=== PATIENT | male | born 1955 | race Caucasian/White ===

== ENCOUNTER → 2017-09-12 10:20 | Outpatient (CLI) | payer OTHER, SELFPAY ==
--- NOTE | 2017-09-12 10:31 | MRI_ITS ---
STUDY: MRI LUMBAR SPINE WITHOUT CONTRAST REASON FOR EXAM: Male, 61 years old. back pain, NUMBNESS L LEG TECHNIQUE: Standardized fat and water weighted pulse sequences were obtained in the sagittal and axial planes. COMPARISON: None FINDINGS: T12-L1: Normal endplates. Normal disc height, hydration and morphology. Normal bilateral facet joints. Normal central canal and bilateral lateral recesses. Normal bilateral intervertebral neural foramina. Normal lumbar lordosis. There is no substantial scoliosis. Normal conus medullaris that terminates at the L1 level. L1-2: Small left foramina disc herniation impinging on the left L1 nerve root. Normal bilateral facet joints. Normal central canal and bilateral lateral recesses. Normal bilateral intervertebral neural foramina. L2-3: Endplate spondylosis. Decreased disc height and small circumferential disc bulge. Degenerative changes of the bilateral facet joints. Mild narrowing of the central canal and bilateral intervertebral neural foramina. L3-4: Large left para midline and left foraminal disc herniation impinging on the left L4 and left L3 nerve roots. Endplate spondylosis. Decreased disc height and small circumferential disc bulge. Degenerative changes of the bilateral facet joints. Mild narrowing of the central canal and bilateral intervertebral neural foramina. L4-5: Endplate spondylosis. Decreased disc height and small circumferential disc bulge. Degenerative changes of the bilateral facet joints. Mild narrowing of the central canal and moderate narrowing of the bilateral intervertebral neural foramina. L5-S1: Endplate spondylosis. Decreased disc height and small circumferential disc bulge. Degenerative changes of the bilateral facet joints. Mild narrowing of the central canal and moderate narrowing of the bilateral intervertebral neural foramina. Normal visualized sacral ala. There is a right renal cyst. MRI/Spine Lumbar (Routine) IMPRESSION: Multilevel degenerative changes, as described above. Small left foramina disc herniation at L1-2 impinging on the left L1 nerve root. Large left para midline and left foraminal disc herniation at L3-4 impinging on the left L4 and left L3 nerve roots. Electronically Signed: Dustin Sharma MD at 13:49 EDT Tel , Service support ,
== END ==
PROVIDERS: Family Provider Internal Medicine; PCP Internal Medicine; Visit Provider Internal Medicine
DX: M51.26 Other intervertebral disc displacement, lumbar region (principal); M47.897 Other spondylosis, lumbosacral region
CPT/HCPCS: 72148

== ENCOUNTER 2017-09-19 08:00 | Outpatient (RCR) | payer OTHER, SELFPAY ==
--- NOTE | 2017-08-29 09:01 | HP.PTEVAL_ITS ---
Patient's Visit Information IVY CLINE is a 61 year old M referred to Physical Therapy by Tiesha Ochoa with a diagnosis of Lumbago.. Date of Evaluation: 08/29/17 Physical Therapist: Cruz Preciado DPT, OC - Visit Plan Frequency: 2x /Week Duration: 4-6 Weeks Plan: 2x/week for 4-6 for. ext bias L/S aROM and trunk /core strength. quad and HS stretch. ES and ice as needed. - Subjective Subjective: Back bothered off to left for a couple months but not out of ordinary. Rolled in middle of night a month ago and got bad pain in L side. Took ibuprofena dn back to sleep in 45 minutes. Pain was bad the next day and only able to walk 10 steps. Drove to [place] the next day and hard to stand and OK riding in car. Walked when he got home and adductor muscle was fiery painful. L medial knee numbness/paraesthesia. Saw Dr. Ochoa as he was miserable, given dose pack which kind of helped. Was on alleve 2x/day and ibuprofen every 4 hours. Did not sleep well. Saw chiropractor and then travelled a little bit. Lots of pain while travelling. PRescribed gabapentin. 3 days ago L LBP eased off and is more central now. Taking NSAIDS morning and evening now and has done a lot of sitting. Riding car was OK, not real active over this last weekend. Adductor muscle hurt yesterday evening. Numbness is constant. L adductor pain comes and goes but is much better overall. LBP is intermittent, better sitting and worse standing and needs NSAIDS. Sleeping is interrupted but better last 4-5 nights. Rolling hurts. Not bad in morning but walking hurts after 15 feet in am. 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 Was hard at work walking between rooms. Home activities: Lifting groceries is rough. Can't carry suitcases travelling. Basic ADLs are OK. overall 70% better currently but wasn't great before this incident. - Pain L LBP Pain Intensity (Out of 10): 2 Pain Intensity Range: 0, 8 L adductor pain. Pain Intensity (Out of 10): 1 Pain Intensity Range: 1, 10 - Objective Exits chair gingerly and while maintaining back ext. Needs UE. Walks slowly but safe and avoids excessive trunk movement. Posture is slightly flexed and forward shoulders, flat L/S posture. L/S ROM ext mod limited and painful central, L SB and R sB symmetrical but L hurts. flexion is min limited and painfree. reflexes 1/3 patella and achilles. Sensation is diminished in L medial thigh to gross light touch. Strength LE WNL at 4+/5. Flexibility in HS and quad mod deficits. repeated ext seems to improve motion and NE pain. Repeated flexion gives sharp pain and hesitant to move. - L/S facet compression. Transfers rolling tenderly. Shear force seems to be bothersome to lumbar spine. - Goals Goal 1:: Full L/S aROM without pain Goal Time Frame: 4-6 Weeks Goal 2:: Patient feel 100% back to normal movement and activity as prior to this incidient. Goal Time Frame: 4-6 Weeks Goal 3:: I approp HEP to minimizie future problems. Goal Time Frame: 4-6 Weeks Goal 4:: Sleep without interruptiona t night and roll without npticing back. Goal Time Frame: 2 Weeks - Rehabilitation Potential Physical Therapy Diagnosis: Likely discal pathology. Rehabilitation Potential: Fair - Anticipated Interventions Patient/Client Instruction: Educate patient on: Condition, Plan of Care For the Purpose of:: To decrease pain, To increase ROM, To improve ability of physical actions for home/community/work/leisure Therapeutic Exercise to Include: Strength training, Flexibilty training, Passive ROM, Active ROM, Dynamic Lumbar Stabilization, Sandy Exercises For the Purpose of:: To decrease pain, To increase ROM, To improve ability of physical actions for home/community/work/leisure, To improve gait and locomotor functions TENS: Yes Cryotherapy (ice pack, ice massage): Yes For the Purpose of:: To decrease pain Thank you for the opportunity to evaluate your patient. For Medicare and Medicare HMO plans, please review the plan of care and approve it. It will need to be FAXED BACK to us at [phone] for Medicare purposes. Please let me know if there are questions or concerns regarding this plan of care. Physician Signature: Date:
--- NOTE | 2017-09-19 08:58 | HP.PTREVAL ---
Tiesha Ochoa, It has been my pleasure to treat IVY CLINE over the last 6 visits for Lumbago.. Please see the progress note below for an update on the physical therapy plan of care! Subjective: Better than when I started. More active and doing more then when I started and that can set him back. Mowed the lawn yesterday and edged the lawn yesterday. Over the weekend did really well. No issues. Morning soreness has been slightly worse for a few minutes up to 1/10 centrally in LB. HEP: not doing many at all. 10/06 is return to doctor. MRI last week and has herniatation at L1. Feels like he is ready to be done and continue HEP. 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 Steps reciprocal without pain. L/S AROM full and without pain today, hesitant in flexion. OVERALL MUCH BETTER BUT STILL HESITANT. Plan Plan: F/U 3 WEEKS TO ENSURE PROGRESS AND D/C Goals Goal 1:: Full L/S aROM without pain Goal Time Frame: 4-6 Weeks Goal Progress: Goal Met Goal 2:: Patient feel 100% back to normal movement and activity as prior to this incidient. Goal Time Frame: 4-6 Weeks Goal Progress: Progressing Goal 3:: I approp HEP to minimizie future problems. Goal Time Frame: 4-6 Weeks Goal Progress: Goal Met Goal 4:: Sleep without interruptiona t night and roll without npticing back. Goal Time Frame: 2 Weeks Goal Progress: Goal Met Anticipated Interventions Patient/Client Instruction: Educate patient on: Condition, Plan of Care For the Purpose of:: To decrease pain, To increase ROM, To improve ability of physical actions for home/community/work/leisure Therapeutic Exercise to Include: Strength training, Flexibilty training, Passive ROM, Active ROM, Dynamic Lumbar Stabilization, Sandy Exercises For the Purpose of:: To decrease pain, To increase ROM, To improve ability of physical actions for home/community/work/leisure, To improve gait and locomotor functions TENS: Yes Cryotherapy (ice pack, ice massage): Yes For the Purpose of:: To decrease pain Please do not hesitate to contact me at [phone] by phone or if you have questions or concerns regarding this new plan of care! Sincerely, Cruz Preciado, DPT, OC
--- NOTE | 2017-10-10 08:41 | HP.PTDCSUM ---
HP - PT D/C Summary It has been my pleasure to treat IVY CLINE under orders from Tiesha Ochoa, for the diagnosis of Lumbago. for a total of 7 visit(s). Discharge Date: 10/10/17 Please see the following information for a summary of their discharge status. - Subjective Subjective: Cancelled last recheck on [facility]. - Pain L LBP Pain Intensity (Out of 10): 0 L adductor pain. Pain Intensity (Out of 10): 0 L GROIN Pain Intensity (Out of 10): 0 - Overall Improvement % Improvement: 95 - Objective Objective/Function: Walks slow and hesitant but wihtout pain. Steps reciprocal without pain. L/S AROM full and without pain today, hesitant in flexion. OVERALL MUCH BETTER BUT STILL HESITANT. - Goals Goal 1:: Full L/S aROM without pain Goal Progress: Goal Met Goal 2:: Patient feel 100% back to normal movement and activity as prior to this incidient. Goal Progress: Progressing Goal 3:: I approp HEP to minimizie future problems. Goal Progress: Goal Met Goal 4:: Sleep without interruptiona t night and roll without npticing back. Goal Progress: Goal Met - Plan Plan: D/C due to patient cancelling last visit. Note that he was making progress and doing well last session and this was a 3 week f/u to ensure continued progress. - D/C Information Discharge Comments: Pt cancelled today's last scheduled recheck. Was doing well 3 weeks ago at last visit and today was just to ensure continued progress with HEP. D/C! If there are questions or concerns regarding this patient's physical therapy, please feel free to call me at [phone]. Thank you for the referral of this patient. Sincerely, Cruz Preciado, DPT, OC
== END 2017-09-19 19:00 | disposition home or self-care (01) ==
LOC: PT 08:00
PROVIDERS: Family Provider Internal Medicine; PCP Internal Medicine; Visit Provider Internal Medicine
DX: M54.5 Low back pain (principal)
CPT/HCPCS: 97110; 97162; 97530

== ENCOUNTER → 2017-11-23 13:06 | Outpatient (CLI) | payer OTHER, SELFPAY ==
[2017-11-23 14:36] LABS: PSA,Total- Diagnostic 1.13 ng/mL (0.0-4.0)
[2017-11-25 08:51] LABS: Testosterone Free 5.8 pg/mL (6.6-18.1)
== END ==
PROVIDERS: Family Provider Internal Medicine; PCP Internal Medicine; Visit Provider Internal Medicine
DX: R97.20 Elevated prostate specific antigen [PSA] (principal); N52.9 Male erectile dysfunction, unspecified
CPT/HCPCS: 36415; 84153; 84402

== ENCOUNTER → 2017-12-23 16:51 | Outpatient (CLI) | payer OTHER, SELFPAY ==
--- NOTE | 2017-12-23 17:00 | RAD_ITS ---
STUDY: X-RAY - UNILATERAL RIBS ( RIGHT ) WITH CHEST REASON FOR EXAM: Male, 62 years old. Right rib pain TECHNIQUE - RIBS: 4 view(s) of the ribs. TECHNIQUE - CHEST: Single PA view of the chest. COMPARISON: None. FINDINGS - RIBS: Normal visualized ribs without a demonstrated fracture. FINDINGS - CHEST: No confluent airspace infiltrate. No pleural effusion or pneumothorax. Normal size heart. Normal mediastinum and lexie. Normal visualized pulmonary arteries. Normal visualized aortic arch and descending thoracic aorta. Normal visualized thoracic spine. Normal visualized ribs, clavicles, and shoulders. There is no demonstrated abnormality of the visualized soft tissue structures of the upper abdomen. RAD/Ribs Uni Min 3V w/PA Chest IMPRESSION: RIBS: Normal x-ray examination of the ribs. CHEST: Normal x-ray examination of the chest. Electronically Signed: Prasad Garcia MD at 1:28 EDT Tel , Service support ,
== END ==
PROVIDERS: Family Provider Internal Medicine; PCP Internal Medicine; Referring Provider Internal Medicine; Visit Provider Internal Medicine
DX: R07.81 Pleurodynia (principal)
CPT/HCPCS: 71101

== ENCOUNTER → 2018-08-09 14:33 | Outpatient (CLI) | payer SELFPAY ==
--- NOTE | 2018-08-09 14:38 | CT_ITS ---
STUDY: CARDIAC CALCIUM SCORING - CT CHEST REASON FOR EXAM: Male, 62 years old. Hyperlipidemia. Screening. RADIATION DOSAGE (If Supplied By Facility): CTDIvol = ( 12.19 ) mGy, DLP = ( 243.79 ) mGycm TECHNIQUE: Axial non-enhanced images were acquired through the heart for the sole purpose of measuring coronary artery calcium. Individualized dose optimization techniques were used for this CT. COMPARISON: None. FINDINGS: Visualized surrounding anatomy: Fatty liver Left Main Coronary Artery: 0 Left Anterior Descending Artery: 1.19 Left Circumflex Artery: 0 Right Coronary Artery: 0 Total Calcium Score: 1.19 CT/CCTA Calcium Scoring IMPRESSION: A Calcium Score of 1.19 places the patient in the approximate first percentile, based on the [employer] data calculator. Please go to: [email or web address][email or web address] , for a description of the calculator. Electronically Signed: Lowell Leavitt, at 15:50 EDT Tel , Service support ,
--- NOTE | 2018-08-09 14:38 | CT_ITS ---
STUDY: CARDIAC CALCIUM SCORING - CT CHEST REASON FOR EXAM: Male, 62 years old. Hyperlipidemia. Screening. RADIATION DOSAGE (If Supplied By Facility): CTDIvol = ( 12.19 ) mGy, DLP = ( 243.79 ) mGycm TECHNIQUE: Axial non-enhanced images were acquired through the heart for the sole purpose of measuring coronary artery calcium. Individualized dose optimization techniques were used for this CT. COMPARISON: None. FINDINGS: Visualized surrounding anatomy: Fatty liver Left Main Coronary Artery: 0 Left Anterior Descending Artery: 1.19 Left Circumflex Artery: 0 Right Coronary Artery: 0 Total Calcium Score: 1.19 CT/Limited Chest CT w/CCTA IMPRESSION: A Calcium Score of 1.19 places the patient in the approximate first percentile, based on the [employer] data calculator. Please go to: [email or web address].[email or web address] , for a description of the calculator. Electronically Signed: Lowell Leavitt, at 15:50 EDT Tel , Service support ,
[2018-08-09 14:48] VITALS: BP 161/77; PULSE 70; RESP 16; O2SAT 96; BMI 38.0
--- NOTE | 2018-08-11 12:14 | CA.SCORE ---
Calcium Scoring Date of Study:: 08/09/18 Coronary Calcium Scoring: High-resolution Computed Tomographic imaging of the chest was performed on [ ], with particular attention paid to the coronary arteries. Images from the examination were analyzed for the presence and extent of coronary artery calcification , using coronary calcium quantification software. The patient tolerated the procedure well and there were no complications. The results of the coronary calcification analysis are provided below. - Findings Left Main (LM): 0 Left Anterior Descending (LAD): 1.19 Left Circumflex (LCX): 0 Right Coronary Artery (RCA): 0 Total Agatston Score: 1.19 Percentile Rankin - Conclusion Calcium Scoring Interpretation: Calcium Score Interpretation 0 No identifiable atherosclerotic plaque. Very low cardiovascular disease risk. <5% chance of presence coronary artery disease A Negative Examination 1-10 Minimal Plaque burden. Significant coronary artery disease very unlikely. 11-100 Mild plaque burden. Likely mild or minimal coronary atherosclerosis. 101-400 Moderate plaque burden Moderate non-obstructive coronary artery disease highly likely. Over 400 Extensive plaque burden. High likelihood of at least one significant coronary stenosis (>50% diameter) Conclusions: Patient has a coronary calcium score of 1.19 which is consistent with minimal plaque burden. Significant coronary artery disease very unlikely.
== END ==
PROVIDERS: Family Provider Internal Medicine; PCP Internal Medicine; Referring Provider Internal Medicine; Visit Provider Internal Medicine
DX: E78.5 Hyperlipidemia, unspecified (principal)
CPT/HCPCS: 75571; 76380

== ENCOUNTER 2019-11-12 04:29 | Emergency (ER) | payer OTHER, SELFPAY ==
[2018-08-09 14:48] VITALS: BMI 38.0
[2019-11-12 04:30] VITALS: BP 164/103; PULSE 77; RESP 15; TEMP 36.4; O2SAT 97; BMI 30.2
--- NOTE | 2019-11-12 04:41 | RAD_ITS ---
STUDY: X-RAY - CERVICAL SPINE REASON FOR EXAM: Male, 63 years old. Cervical radiculopathy. Neck pain for 3 days. No known injury. TECHNIQUE: History view(s) of the cervical spine were obtained. COMPARISON: None FINDINGS: Normal anterior atlantoaxial articulation. Normal odontoid process. Normal cervical lordosis. Normal vertebral bodies. Disc space narrowing C5 -- C6 through C7 -- T1. Marginal osteophytes at multiple levels in the mid and lower cervical spine. Uncovertebral joint hypertrophy at multiple levels. The soft tissue structures are unremarkable. RAD/Cerv Spine 2 or 3 Views IMPRESSION: Multilevel degenerative changes of the mid and lower cervical spine, no fracture identified. Electronically Signed: Lyndon Jeffrey MD at 5:37 EDT , Service support ,
--- NOTE | 2019-11-12 04:44 | ED.VIS.GEN ---
History of Present Illness Chief Complaint: Other, Pain/Inj Narrative: Patient presenting for evaluation secondary to neck pain. Patient reports that over the course of about the last 4 days he has been dealing with neck pain. He reports that it is from the base of his neck and has started to have some radiation down to his left shoulder and left upper arm. Pain seems to be worse with movement. Is been intermittently relieved via NSAIDs such as ibuprofen as well as a heating pad. Patient denies that it is been associated with any sort of injury. No falls. No lifting twisting pushing or pulling or increased activity. States that he has had maybe mild symptoms in the past, but nothing severe. Patient denies any recent fevers chills night sweats unintended weight loss. Patient had a left elbow injection with Kenalog about 6 weeks ago denies any history of IV drug abuse or recent surgeries. Review of systems otherwise negative. Past Medical History - Allergies and Home Meds Allergies/Adverse Reactions: Allergies Proton Pump Inhibitors Adverse Reaction (Verified 11/12/19 04:33) Other MUSCLE PAIN PPI Adverse Reaction (Uncoded 03/03/16 14:09) MUSCLE PAIN Primary Care Physician: Ai Amaya MD [STAFF PHYSICIAN] - As soon as possible Jessica Herman MD [STAFF PHYSICIAN] - (If not receiving pain relief from Pain Management) Prior records reviewed: Yes Past Medical History: - - Diabetes, hypertension Lives: Spouse/ Significant Other Smoking Status: Never smoker Alcohol: None Drugs: None Review of Systems All systems negative except as indicated General: Denies: Chills, Fever, Sweats Eyes: Denies: Visual changes - bilaterally, Diplopia ENT: Denies: Rhinorrhea, Sore throat Cardiovascular: Denies: Chest pain, Palpitations Respiratory: Denies: Dyspnea, Cough, Dyspnea on exertion Gastrointestinal: Denies: Abdominal pain, Nausea, Vomiting, Diarrhea, Melena, Hematochezia Genitourinary: Denies: Dysuria, Hematuria, Frequency Musculoskeletal: Reports: Neck pain Skin: Denies: Rash, Wounds Neurological: Denies: Headache, Weakness, Numbness Physical Exam Vital Signs/Narrative: Vital Signs Temp Pulse Resp BP Pulse Ox 11/12/19 04:30 97.6 F L 77 15 164/103 H 97 Inital Vital Signs reviewed: Yes General: Well nourished, Well developed Head: Normocephalic, Atraumatic Eyes: Perrl, EOMI ENT: Moist mucous membranes, No rhinorrhea Neck: Supple, - - Patient complains of no tenderness of the neck. There is normal range of motion with minimal pain in the lower neck. No step-offs noted. No reproduction of pain with axial loading of the neck. Cardiovascular: Regular rate, Regular rhythm, No murmurs, - - 2+ radial pulses bilaterally symmetric Respiratory: No distress, CTA bilaterally, Chest nontender Back: Nontender Extremities: Nontender, No edema Skin: Normal color, No rash Neurological: Alert, Oriented x3, - - 5 out of 5 strength at the shoulder elbow wrist and hand with normal sensation over all dermatomes. 2+ brachioradialis biceps and triceps reflexes bilaterally symmetric. Normal distal pulses. Psychological: Normal affect Diagnostic/Tx/Re-eval Clinical Impression(s) from Imaging Studies Cervical Spine X-Ray 11/12/19 04:41 IMPRESSION: Multilevel degenerative changes of the mid and lower cervical spine, no fracture identified. Electronically Signed: Lyndon Jeffrey MD at 5:37 EDT , Service support , - Medical Decision Making Patient presented secondary to neck pain. Patient requested not to have too strong of analgesia due to the fact that he has to work this week, he was given a dose of Flexeril with minimal if no relief. X-ray of the neck was performed and shows some degenerative changes of the patient's lower C-spine. Patient has no red flag signs or symptoms that would indicate a need for emergent neuroimaging. He does have symptoms of cervical radiculopathy. He has a history of diabetes, I had a palmer discussion with the patient about the risks of gastritis and hyperglycemia with steroid use, I did recommend that if we were to try steroids he needs to more frequently check his sugars. He did consent to this. Patient was given a dose of prednisone in the emergency department. Will be sent home with a burst of prednisone as well as a short course of Percocet for breakthrough pain. Patient will be given a referral to pain management as well as spine surgery. Patient was recommended other conservative management measures and he was discharged. ED Disposition - Plan for ED Patient: Disposition: Home or Assisted Living Diagnosis: Cervical radiculopathy Instructions: ED CERVICAL RADICULOPATHY Prescriptions: Prednisone [Deltasone] 40 mg PO DAILY #10 tab Prescription Printed Oxycodone HCl/Acetaminophen [Percocet 5/325] 1 tab PO Q6H PRN PRN 3 Days #12 tab PRN Reason: Pain Prescription Printed Referrals: Ai Amaya MD [STAFF PHYSICIAN] - As soon as possible Jessica Herman MD [STAFF PHYSICIAN] - (If not receiving pain relief from Pain Management)
[2019-11-12] MEDS: cycloBENZAPRine HCl 10 MG Tablet PO (04:58)
[2019-11-12] MEDS: predniSONE 20 MG Tablet 60 MG PO (05:58)
[2019-11-12 06:02] VITALS: BP 158/92; PULSE 86; RESP 17; O2SAT 96
== END 2019-11-12 06:03 | disposition home or self-care (01) ==
LOC: ED 04:59
PROVIDERS: Emergency Provider Emergency Medicine; PCP Internal Medicine
DX: M54.12 Radiculopathy, cervical region (principal); E11.9 Type 2 diabetes mellitus without complications; I10 Essential (primary) hypertension; Z79.84 Long term (current) use of oral hypoglycemic drugs
CPT/HCPCS: 72040; 99283

== ENCOUNTER 2019-12-19 10:30 | Outpatient (RCR) | payer OTHER, SELFPAY ==
--- NOTE | 2019-11-19 13:09 | HP.PTEVAL_ITS ---
Patient's Visit Information IVY CLINE is a 64 year old M referred to Physical Therapy by Dr. Tiesha Ochoa MD with a diagnosis of Severe Neck Pain. Date of Evaluation: 11/19/19 Physical Therapist: Ivanna Daniel DPT - Visit Plan Frequency: 2-3x /Week Duration: 4 Weeks Plan: Postural correction- Centralization- cervical spine strength- Ultrasound, E-stim and Traction (manual prior to mechanical). - Subjective Patient reports that he went on vacation a week and a half ago slept fine but about the 4th morning he woke up and had pain at the base of the spine- Ibuprofen and it got better- then it started to get worse at night. He was t aking more NSAIDS- he was awake at night 09/30 and then asked to go to the ED- x- rays showed slight OA- gave him a muscle relaxer, Percoset for break through and Prednisone. Then saw his PCP who prescribed Gabapentin. The muscle relaxers don't seem to do anything for him. At night he was up every hour- once he started taking Valium and Percoset and then he was able to sleep for a few more hours. She extended the Predisone 2x a day so at night things have been a little better has not had to take the Percoset in the middle of the night. Sleeping 3 hours at at time at this point. During the day he is not bad but its at the end of the day it gets progressively worse in the evening and through the night. Pain is C6-7 and radiates to the left- mainly in the trap but does radiate to the AC joint. No N/T in the fingers or UE. Sharp constant pain the back of the neck- referred pain nagging achy pains. Worst: 09/30 Agg: night time, Best: 03/02. Eases: medication. Does not feel like he is losing strength in either upper extremity. Has had a GARCIA 1-2x but not consistent- no blurred vision or dizziness. Right hand dominate. Sleep: Side sleeper- twisted like a pretzel- uses 1 pillow. 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 PMhx/Meds: addition of Gabapentin from PCP - Objective Posture: FH, RS- can correct but does not maintain. Gait: no deviation noted- good arm swing and trunk rotation. Palpation: tender along C6-C7 along the left upper trap, insertion of levator scap and down the medial boder of the scapula. ROM: UE: Shoulder, Elbow, Wrist, Hand: WNL Cervical: Extn: decreased by 50% all other motions no restrictions. Sensation: WNL to gross touch bilateral. Strength: Shoulder: 5/5 ELbow: 5/5, Wrist: 5/5, Yarn Dry Room Worker: equal, Scap: fair minus. Special Test: Spurlings: positive, Gentle distraction: decreased symptoms mildly. Dural Signs: positive on the left - Goals Goal 1:: Patient will be I with HEP and progression Goal Time Frame: 4-6 Weeks Goal 2:: Patient will maintain proper posture t/o tx session to demo increased scap s/s Goal Time Frame: 4-6 Weeks Goal 3:: Patient will report no radiating s/s in the left UE Goal Time Frame: 4-6 Weeks Goal 4:: Patient will reports sleeping throughout the night for 1 week Goal Time Frame: 4-6 Weeks - Rehabilitation Potential Physical Therapy Diagnosis: Patient presents with hypomobility- he has decreased ROM, muscular endurance and radiating pain leading to increased pain with ADLs and inability to sleep. Rehabilitation Potential: Fair - Anticipated Interventions Thank you for the opportunity to evaluate your patient. For Medicare and Medicare HMO plans, please review the plan of care and approve it. It will need to be FAXED BACK to us at [phone] for Medicare purposes. For Medicare only, by signing this I certify the plan of care. Please let me know if there are questions or concerns regarding this plan of care. Physician Signature: Date:
--- NOTE | 2019-12-19 10:57 | HP.PTREVAL ---
Dr. Tiesha Ochoa MD, It has been my pleasure to treat IVY CLINE over the last 9 visits for Severe Neck Pain. Please see the progress note below for an update on the physical therapy plan of care! Subjective: Patient reports he is sleeping fine- took 2 Gabapentin before bed time. Some days he is taking meds through the day but more often than not he is taking more NSAID's during the day and getting through the day. He is a 1-2/10 at this point in the day without medication. Objective/Function: Posture: FH, RS- can correct but does not maintain. Gait: no deviation noted- good arm swing and trunk rotation. Palpation: tender along the left upper trap, insertion of levator scap and down the medial boder of the scapula. ROM: UE: Shoulder, Elbow, Wrist, Hand: WNL Cervical: WNL in all planes without pain. Sensation: WNL to gross touch bilateral. Strength: Shoulder: 5/5 ELbow: 5/5, Wrist: 5/5, Staff Development Manager: equal, Scap: fair minus. Special Plan Plan: Hold- will follow up in 1 month- start massage Goals Goal 1:: Patient will be I with HEP and progression Goal Time Frame: 4-6 Weeks Goal Progress: Goal Met Goal 2:: Patient will maintain proper posture t/o tx session to demo increased scap s/s Goal Time Frame: 4-6 Weeks Goal Progress: Progressing Goal 3:: Patient will report no radiating s/s in the left UE Goal Time Frame: 4-6 Weeks Goal Progress: Goal Met Goal 4:: Patient will reports sleeping throughout the night for 1 week Goal Time Frame: 4-6 Weeks Anticipated Interventions Please do not hesitate to contact me at [phone] by phone or if you have questions or concerns regarding this new plan of care! Sincerely, Ivanna Daniel DPT
--- NOTE | 2020-01-31 11:06 | HP.PT.NRP ---
IVY CLINE was seen in my office for initial evaluation on 11/19/19. The following Plan of Care was established for this patient: Initial Frequency: 2-3x /Week Initial Duration: 4 Weeks This patient was last seen in our office . Pertinent comments regarding their Physical therapy will appear below: Patient has not returned to PT in over 4 weeks- appropriate for discharge and return to MD for further evaluation. At this point I will be discontinuing this patient from physical therapy. I would be happy to see this patient again in the future if found appropriate by the physician. Thank you! Ivanna Daniel, LAZT
== END 2019-12-19 19:00 | disposition home or self-care (01) ==
LOC: PT 10:30
PROVIDERS: PCP Internal Medicine; Referring Provider Internal Medicine; Visit Provider Internal Medicine
DX: M54.2 Cervicalgia (principal)
CPT/HCPCS: 97035; 97110; 97140; 97162; 97164; 97530

== ENCOUNTER → 2020-12-22 11:21 | Outpatient (CLI) | payer OTHER, SELFPAY ==
--- NOTE | 2020-12-22 11:30 | RAD_ITS ---
STUDY: X-RAY CHEST REASON FOR EXAM: Male, 65 years old. SHORTNESS OF BREATH TECHNIQUE: PA and lateral views of the chest. COMPARISON: Comparison is made with prior study dated 12/03/2016. FINDINGS: There is elevation of the left hemidiaphragm with increased markings at the left base suggestive of bibasilar linear atelectasis and/or scarring. There is blunting of the left costophrenic angle. Normal size heart. Normal mediastinum and lexie. Normal visualized pulmonary arteries. There is atherosclerotic tortuosity of the aortic arch and descending thoracic aorta. Normal visualized thoracic spine. Normal visualized ribs, clavicles, and shoulders. There is no demonstrated abnormality of the visualized soft tissue structures of the upper abdomen. RAD/Chest PA and Lateral IMPRESSION: Elevation of the left hemidiaphragm with mild increased markings at the left lung base and blunting of the left costophrenic angle. Electronically Signed: Rogelio Albert MD at 15:41 EDT , Service support ,
--- NOTE | 2020-12-22 11:30 | RAD_ITS ---
STUDY: X-RAY - SOFT TISSUE NECK REASON FOR EXAM: Male, 65 years old. NECK/TRUNK SENSORY PROBLEM TECHNIQUE: 2 view(s) of the neck were obtained. COMPARISON: None. FINDINGS: Normal visualized nasopharynx, oropharynx, hypopharynx. Normal epiglottis. Normal visualized subglottic tracheal air column. Normal prevertebral soft tissue structures. There are degenerative changes of the cervical spine with cervical spondylosis. The soft tissue structures are unremarkable. RAD/Neck for Soft Tissue IMPRESSION: Multilevel spondylosis and disc space narrowing of the cervical spine. Electronically Signed: Rogelio Albert MD at 15:36 EDT , Service support ,
== END ==
PROVIDERS: PCP Internal Medicine; Referring Provider Internal Medicine; Visit Provider Internal Medicine
DX: R06.02 Shortness of breath (principal); R68.89 Other general symptoms and signs
CPT/HCPCS: 70360; 71046

== ENCOUNTER → 2021-01-07 06:22 | Outpatient (CLI) | payer OTHER, SELFPAY ==
--- NOTE | 2021-01-07 06:31 | CT_ITS ---
STUDY: CT CHEST WITH CONTRAST REASON FOR EXAM: Male, 65 years old. SOB. Patient has a history of sarcoidosis. RADIATION DOSAGE (If Supplied By Facility): CTDIvol = ( 17.10 ) mGy, DLP = ( 772.64 ) mGycm TECHNIQUE: Transaxial imaging was performed following intravenous administration of IV 100mL Isovue-370. Multiplanar coronal and sagittal images were reformatted. Individualized dose optimization techniques were used for this CT. COMPARISON: None. FINDINGS: Small benign-appearing bilateral axillary lymph nodes. Focal infiltrate in the posterior segment of the left lower lobe. There is no demonstrated pleural abnormality. Normal heart and pericardium. Normal mediastinum. Normal hilar regions. Normal enhanced pulmonary arteries. Normal aorta arch and descending thoracic aorta. There are multi-level degenerative changes of the thoracic spine. There is no demonstrated abnormality of the visualized upper abdomen. CT/Chest WITH Contrast IMPRESSION: Focal left lower lobe infiltrate. Electronically Signed: Rogelio Albert MD at 13:50 EST , Service support ,
[2021-01-07 09:20] LABS: CREATININE FINGERSTICK 0.7 mg/dL (0.70-1.30); EGFR FINGERSTICK > 60.0000 mL/min (>60)
--- NOTE | 2021-01-07 13:23 | STRESSREP ---
Stress Test Report Exercise myocardial perfusion stress test. 65-year-old man with a history of shortness of breath. Medications amlodipine benazepril Crestor. Stress protocol: Resting EKG demonstrates normal sinus rhythm with a rate of 65 bpm normal intervals are noted resting blood pressure is 118/78 mmHg. The patient exercised according to regular Leobardo protocol for total duration of 7 minutes completing 1 minute into stage III of the Leobardo protocol the maximum heart rate attained 139 bpm which was 89% of max impact at heart rate the maximum workload was 10.1 metabolic equivalents. At rest there were no ST or T wave changes noted to suggest ischemia and at peak exercise upsloping ST changes were noted with did not suggest ischemia. No chest pain was noted shortness of breath was noted which got rather significant at peak exercise. Dissipated on rest. Myocardial perfusion protocol. 14.7 mCi of technetium 99m sestamibi was injected at rest. The patient exercised according to regular Leobardo protocol for 7 minutes and at peak exercise 44.9 mCi of technetium 99m sestamibi was injected stress images were obtained and stress and rest images were reconstructed and compared in the short axis vertical long and horizontal long axis. Gated images were also obtained per Perfusion SPECT analysis: Review of the stress images demonstrate normal uptake of tracer noted in all areas of the myocardium. The resting images similarly demonstrate normal uptake of tracer noted in all areas of the myocardium. No areas of reversibility are noted to suggest ischemia and no previous infarct is noted. Gated SPECT analysis: The gated ejection fraction is 65%. Conclusion: Normal exercise myocardial perfusion stress test with no evidence of ischemia at a high workload. Preserved ejection fraction.
--- NOTE | 2021-01-08 13:15 | PFT ---
INTRODUCTION: The patient is a 65-year-old male that presents for pulmonary function studies secondary to a diagnosis of shortness of breath. Respiratory therapy reported good patient effort. Bronchodilators were used during testing. INTERPRETATION: Forced expiration spirometry demonstrates no evidence of a large airways obstructive ventilatory defect. There was no significant response to aerosolized bronchodilators. Spirograms are of good quality and plateau gradually indicating slow emptying of the lungs. Body plethysmography was performed and revealed an elevated RV, indicative of air trapping. Diffusing capacity by single breath CO is within normal limits. IMPRESSION: Grossly normal pulmonary function studies.
== END ==
PROVIDERS: PCP Internal Medicine; Referring Provider Internal Medicine; Visit Provider Internal Medicine
DX: R06.02 Shortness of breath (principal)
CPT/HCPCS: 71260; 78452; 93017; 94060; 94726; 94729; A9500; Q9967; A4216

== ENCOUNTER → 2021-01-14 09:13 | Outpatient (CLI) | payer OTHER, SELFPAY ==
--- NOTE | 2021-01-14 09:20 | RAD_ITS ---
PROCEDURE: Sniff test DATE OF EXAMINATION: 01/14/2021 INDICATION: Male, 65 years old with increasing dyspnea on exertion. PHYSICIAN: Dr. Brice Rehman FLUOROSCOPY TIME (if supplied): (5) seconds RADIATION DOSAGE (If Supplied By Facility): CTDIvol = ( 8.26 ) mGy. CONSENT: The risks, benefits and alternatives to the procedure were explained to the patient, and the patient agreed to the procedure and signed the consent. SEDATION: None PROCEDURE/TECHNIQUE: The lung apices were not included in the [id number]. Please note that the low-dose technique is suboptimal for complete evaluation of the lungs. Multiple AP fluoroscopic sequences were obtained of the bilateral diaphragms with the patient in upright position. Patient was instructed breathed normally. Normal right-sided diaphragmatic excursion. Persistent elevation of the left hemidiaphragm. Patient was then asked to perform sniff test. Normal right-sided diaphragmatic excursion. Persistent elevation of the left hemidiaphragm was again seen with paradoxical motion. RAD/Chest Sniff Test Fluoro Only IMPRESSION: Abnormal persistent elevation and paradoxical motion of the left hemidiaphragm. Electronically Signed: Brice Rehman MD at 13:04 EST Tel , Service support ,
== END ==
PROVIDERS: PCP Internal Medicine; Referring Provider Internal Medicine; Visit Provider Internal Medicine
DX: R93.89 Abnormal findings on diagnostic imaging of other specified body structures (principal); R68.89 Other general symptoms and signs
CPT/HCPCS: 76000

== ENCOUNTER 2021-12-25 13:30 | Outpatient (RCR) | payer MEDICARE, OTHER, SELFPAY ==
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
--- NOTE | 2021-12-25 15:19 | HP.PTDCSUM_ITS ---
It has been my pleasure to treat IVY CLINE referred by Dr. Adriana Dowling DO, with the diagnosis of LOW BACK PAIN AND RIGHT FOOT PAIN (PLANTAR FASCITIS) TIGHT ACHILLES. for a total of 8 visit(s). Discharge Date: Please see the following information for a summary of their discharge status. Subjective: PATIENT REPORTS HE IS MUCH BETTER. HE REPORTS HE FEELS READY TO BE DISCHARGED TO [facility] AT THIS TIME. HE REPORTS HE HAS [facility] AND PLANS TO JOIN TO CONTINUE [employer] [facility]. HE REPORTS HIS FOOT IS 90 TO 95% BETTER AND HIS BACK IS 80 TO 85% BETTER. PATIENT DENIES LB AND FOOT PAIN RIGHT NOW. IS HAVING SOME NECK/SHLD PAIN - MASSAGE HELPS. 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 Lumbar Spine Pain Intensity (Out of 10): Unrated Cerv. Spine Pain Intensity (Out of 10): Unrated Objective/Function: PATIENT WAS SEEN TODAY FOR RE-ASSESSMENT OF PROGRESS TOWARD THE SET PT GOALS AND THE NEED FOR FURTHER PHYSICAL THERAPY VS READINESS FOR DISCHARGE. ALL GOALS MET. UPON EXAM TODAY: Dural Signs: NEGATIVE TAMARA LE'S. Lumbar mvmt loss: flex - NIL. ext - MIN. R SG - MIN. L SG - MIN. PATIENT DENIES INCREASED LOW BACK AND FOOT PAIN WITH LUMBAR ROM TESTING ALL PLANES. NO C/O PAIN TODAY WITH STANDING X 5 MIN. Goal 1:: DECREASE C/O LOW BACK AND RIGHT FOOT PAIN Goal Progress: Goal Met Goal 2:: IMPROVE LIFTING, WALKING, SITTING, STANDING AND WORK/HOMEMAKING FUNCTION Goal Progress: Goal Met Goal 3:: INSTRUCT IN PROPHYLAXIS Goal Progress: Goal Met Plan: D/C TO [facility] - PATIENT IS PLANNING TO JOIN [employer] WITH [employer]. If there are questions or concerns regarding this patient's physical therapy, please feel free to call me at [phone]. Thank you for the referral of this patient. Sincerely, Denise Garrido, PT, Cert MDT Balance/Gait/Functional tests - Balance/Special Test Scores Oswestry Low Back Score: 14 Lower Extremity Functional Score: 34
== END 2021-12-25 16:23 | disposition home or self-care (01) ==
LOC: PT 13:30
PROVIDERS: PCP Internal Medicine; Referring Provider Internal Medicine; Visit Provider Internal Medicine
DX: M54.50 Low back pain, unspecified (principal); M72.2 Plantar fascial fibromatosis
CPT/HCPCS: 97112; 97113; 97162

== ENCOUNTER → 2022-01-13 | Outpatient (CLI) | payer MEDICARE, OTHER, SELFPAY ==
--- NOTE | 2022-01-13 12:51 | STE_ITS ---
Reason For Study: Dyspnea Stress Results Protocol: Dobutamine Stress Echo Maximum Predicted HR: 155 bpm Target HR: 132 bpm % Maximum Predicted HR: 81 % DurationHeart Rate Stage (mm:ss) (bpm) BP Comment Baseline 65 123/85No Chest Pain DSE 10 MCG 4:22 68 116/77No Chest Pain DSE 20 MCG 3:00 71 129/75No Chest Pain DSE 30 MCG 3:01 75 140/72No Chest Pain DSE 40 MCG 5:12 125 162/92No Chest Pain; Atropine 0.5 MG 1042; Atropine 0.5 MG 1210 Recovery 97 130/88No Chest Pain Stress Duration: 15:35 mm:ss Maximum Stress HR: 125 bpm METS: 1 Baseline Echocardiogram Findings Stress Echo Wall motion Data Resting WM Intermediate WM Stress WM ECHO/Stress Test Echo w/o Contrast Interpretation Summary . Dobutamine stress echocardiogram. 66-year-old man with a history of shortness of breath and chest pain. Resting EKG. Resting EKG demonstrates normal sinus rhythm with a rate of 81 bpm normal intervals are noted resting blood pressure is 123/85 mmHg. Dobutamine was infused starting at 310 mcg/kg/min increasing and 3-minute aliquots to a peak of 40 mcg/kg/min. The patient requir ed 1 mg of intravenous atropine given and 0.5 mg aliquots for attainment of target heart r ate. The maximum heart rate attained was 1 and 25 bpm which was 80% of max impacted heart rate t he maximum workload was 1 metabolic equivalent. At rest there were no ST or T wave changes noted so ggest ischemia and at peak infusion nonspecific ST changes were noted. The peak blood pressure was 17 5/97 mmHg. Stress echocardiogram. The resting echocardiogram demonstrated an ejection fraction of 55% with no wal l motion abnormalities noted. A prominent thickened papillary muscle was noted. During d obutamine infusion there was thickening of all bender and reduction of low ventricular cavity size with peaking of ejection fraction at 75%. No wall motion abnormalities were noted. Conclusion: Normal dobutamine stress echocardiogram with no EKG or echocardiographic criter ia for ischemia. Ordering Physician: Teddy Hopper V Referring Physician: Teddy Hopper V Performed By: Janneth Roach, CHASE, RVT
== END | disposition home or self-care (01) ==
PROVIDERS: PCP Internal Medicine; Referring Provider Internal Medicine Pulmonary Disease; Visit Provider Internal Medicine Pulmonary Disease
DX: R06.00 Dyspnea, unspecified (principal)
CPT/HCPCS: 93017; 93350; J7040; Q9957; A4216

== ENCOUNTER 2022-04-08 12:30 | Outpatient (RCR) | payer MEDICARE, OTHER, SELFPAY ==
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
--- NOTE | 2022-04-08 14:19 | HP.PTDCSUM ---
It has been my pleasure to treat IVY CLINE referred by Dr. Adriana Dowling DO, with the diagnosis of low back pain and muscle spasms for a total of 7 visit(s). Discharge Date: Please see the following information for a summary of their discharge status. Subjective: Overall Ivy reports not much improvement with PT. Pt. denies changes in B/B control, but is having more issues where his legs give out on him. He reports having an incident at work where he collapsed in the a chair due to his legs giving out on him. He says there is instant pain, but after there is not much. Lumbar spine Pain Intensity (Out of 10): 0 % Improvement: 20 Objective/Function: Pt. has not made much gains with PT, in fact he is having more occurrences of his legs giving away. He is very limited in his mobility in transitions, ie sit to stand like motions. He is very guarded, not secondary to increased pain, but due to his legs wanting to given out on him. It seems like if he goes to far forward (flexed) his legs give out on him, so he has to rise in a very guarded up right posture. I assume MRI is off the table with his diaphram stimulator, but I think he needs to have some sort of image to determine more sinister diagnosis. LE strength: 4+/5 throughout without increase in symptoms. Lumbar spine: limited in all directions due to fear of legs giving out on him. He does not have a marked myotomal weakness in sitting, but has increased issues with transitional movements. GAIT: very guarded with limited arm swing. Overall very guarded posture and mobility. Goal 1:: LTG: Pt. to be I with HEP. Goal Progress: Goal Met Goal 2:: STG: Pt. to be able to rise from sitting positions without occurrence of sudden B LE weakness. Goal Progress: Not Progressing Goal 3:: LTG: pt. to have increased core and BLE strength by 1/2 grade throughout. Goal Progress: Progressing Goal 4:: LTG: pt. to be able to complete all work related activities without occurrence of back pain or sudden LE weakness. Goal Progress: Not Progressing Goal 5:: LTG: Pt. to complete all ADLs and IADLS without increase in low back and LE symptoms. Goal Progress: Not Progressing Plan: I am DCing back to physician at this point in time. If there are questions or concerns regarding this patient's physical therapy, please feel free to call me at [phone]. Thank you for the referral of this patient. Sincerely, Viraj Burns, DPT Balance/Gait/Functional tests - Balance/Special Test Scores Oswestry Low Back Score: 21
== END 2022-04-08 14:40 | disposition home or self-care (01) ==
LOC: PT 12:30
PROVIDERS: PCP Internal Medicine; Visit Provider Internal Medicine
DX: M54.9 Dorsalgia, unspecified (principal); M62.838 Other muscle spasm
CPT/HCPCS: 97110; 97162; 97164

== ENCOUNTER → 2022-04-19 | Outpatient (CLI) | payer MEDICARE, OTHER, SELFPAY ==
--- NOTE | 2022-04-19 15:07 | CT_ITS ---
INDICATION: LOW BACK PAIN -- Lumbar disc hernaition with radiculopathy EXAMINATION: CT LUMBAR SPINE - CT Spine Lumbar W/O Contrast Injection TECHNIQUE: Helically acquired images were obtained of the lumbar spine. 2D reformats were reviewed. A radiation dose optimization technique was used for this scan. IV Contrast dosage and agent: None. COMPARISON: December 03, 2016. FINDINGS: VERTEBRAE: No fracture or acute compression deformity. No discrete lytic or blastic abnormality observed. Mild flattening of the typical lumbar lordosis without listhesis. Mild levocurvature of the lower lumbar spine. DISCS and SPINAL CANAL: Diffuse disc height loss. L1-L2, L2-L3: Minimal anterolateral disc bulge. No significant spinal canal stenosis. Minimal bilateral neural foraminal stenosis. L3-4: Small broad-based posterior disc bulge and mild bilateral facet arthropathy, together causing mild spinal canal stenosis and mild bilateral neural foraminal narrowing. L4-5: Small circumferential disc bulge. Moderate right and mild left facet arthropathy and endplate osteophyte formation, together causing minimal spinal canal narrowing, mild left neural foraminal narrowing, and moderate to severe right neural foraminal stenosis. L5-S1: No gross disc herniation. Mild bilateral facet arthropathy and endplate osteophyte formation without significant spinal stenosis, moderate left neural foraminal stenosis, and severe right neural foraminal stenosis with suggestion of osseous compression of exiting L5 nerve root. VISUALIZED ABDOMEN: Left hemidiaphragm elevation suggested. Visualized abdominal aorta is not dilated. There is no retroperitoneal adenopathy. Aortic atherosclerosis and tortuosity without ectasia. CT/Spine Lumbar without Contrast IMPRESSION: No evidence of acute lumbar spinal fracture or spondylolisthesis. Spondylosis as above with predominantly osseous moderate and severe neural foraminal stenosis in the lower lumbar spine as above. Electronically Signed: Phong Ellsworth MD at 3:16 EST Reading Location ID and State: [facility] / [place] Tel , Service support ,
== END | disposition home or self-care (01) ==
LOC: CT 15:00
PROVIDERS: PCP Internal Medicine; Visit Provider Internal Medicine
DX: M51.16 Intervertebral disc disorders with radiculopathy, lumbar region (principal); M54.50 Low back pain, unspecified
CPT/HCPCS: 72131

== ENCOUNTER → 2022-08-27 | Outpatient (CLI) | payer MEDICARE, OTHER, SELFPAY ==
--- NOTE | 2022-08-27 15:01 | CT_ITS ---
STUDY: CT LEFT KNEE WITHOUT CONTRAST REASON FOR EXAM: Male, 66 years old. Acute pain of left knee RADIATION DOSAGE (If Supplied By Facility): CTDIvol = ( 15.35 ) mGy, DLP = ( 495.76 ) mGycm TECHNIQUE: Transaxial CT imaging of the knee was performed. Coronal and sagittal images were reformatted. Individualized dose optimization techniques were used for this CT. COMPARISON: None. FINDINGS: Normal medial femoral condyle and medial tibial plateau. There is preservation of the articular joint space of the medial knee compartment. There is severe degenerative arthrosis of the medial femorotibial compartment with severe joint space narrowing. There is severe degenerative arthrosis of the lateral femorotibial compartment with severe joint space narrowing. There is severe degenerative arthrosis of the patellofemoral articulation. There is a soft tissue prominence in the suprapatellar region suggesting a small volume joint effusion. The soft tissue structures are unremarkable. CT/Extremity Lower without Contra IMPRESSION: Degenerative arthrosis. There is a soft tissue prominence in the suprapatellar region suggesting a small volume joint effusion. Electronically Signed: Sal Castro MD at 18:17 EDT ,
== END | disposition home or self-care (01) ==
LOC: CT 15:00
PROVIDERS: PCP Internal Medicine; Referring Provider Internal Medicine; Visit Provider Internal Medicine
DX: M25.562 Pain in left knee (principal)
CPT/HCPCS: 73700

== ENCOUNTER 2022-11-16 10:30 | Outpatient (RCR) | payer MEDICARE, OTHER, SELFPAY ==
--- NOTE | 2022-09-28 13:46 | HP.PTEVAL ---
Patient's Visit Information Visit Information Visit Information: IVY CLINE is a 66 year old M referred to Physical Therapy by JERRICA OKEEFE with a diagnosis of Varus deformity and knee OA L. Date of Evaluation: 09/28/22 Physical Therapist: CASA Roca Visit Plan Frequency: 2x /Week Duration: 6 Weeks Plan: ++Pt has a major back issue (nerve claudication) and diaphragm issue and now major L knee OA. Will have to start him out with easier kitchen sink and mat exercises and if does ok with those then he can do them at home and the progress to H&W side for strengthening but need to watch back and protect his spine. 2X/ week for 6 weeks for L hip and knee strength, light core, gait and stairs with HEP Subjective Subjective: Pt reports that he was here in the winter for his LB and he had stenosis with nerve claudification and injection in back in July. He was on huge amounts of Gababpetin and that made him more functional but he lifted his leg and turned in bed and had a sharp pain in the L knee. He has had a flap tear in R knee and had arthroscopic surgery in his R knee and pain to walk. After he rolled over he can walk on a flat surface but if on an incline or up an down stairs he would get popping on the L knee. If he walks on the hill in his back yard he would get a sharp pain and catching. He saw Dr Okeefe and had a CT and just saw Dr Okeefe and he thought it was arthritis and bone spurs. It is still popping. He makes an effort to not straighten all the way. He got a steroid injection in his knee and the knee has settled down more. He has no pain with sitting. said to do PT and see where things are with that popping and how to move FW with exercise. His knee locks before full extension. Pain L knee pain: Pain Intensity (Out of 10): 0 Pain Intensity Range: 1 Comment: with walking Objective Objective: Gait: walks with shorter stride and decrease stance time on the L LE. AROM: R knee AROM -5 to 111 degree flexion L knee AROM -2 120 LE MMT: R hip flex 15.9 and L hip flex 11.9 R knee ext 19.2 and L 18.2 R knee flex 6.4 and L knee flex 6.1 R hip abd 8.5 and L 9 Stairs: up and down recip with 2 hand rails.... some signs of weakness Balance/Special Test Scores Lower Extremity Functional Score: 46 Goals Goal 1:: I HEP and H&W program Goal Time Frame: 6-8 Weeks Goal 2:: Increase L knee strength (at time of the eval: R hip flex 15.9 and L hip flex 11.9 R knee ext 19.2 and L 18.2 R knee flex 6.4 and L knee flex 6.1 R hip abd 8.5 and L 9) Goal Time Frame: 6-8 Weeks Goal 3:: Be able to go up and down the steps recip with 2 light UE support on hand rails with no signs of weakness. Goal Time Frame: 6-8 Weeks Goal 4:: Decrease L knee pain Goal Time Frame: 6-8 Weeks Rehabilitation Potential Rehabilitation Potential: Good Anticipated Interventions Patient/Client Instruction: Educate patient on: Condition and Plan of Care For the Purpose of:: To decrease pain, To increase ROM, To improve nutrient delivery to tissue, To improve muscle performance and motor function, To improve ability to perform ADL's, To increase tolerance to activity/condition/position, To improve performance and independence with ADL's, To decrease level of supervision to perform tasks, To improve ability of physical actions for home/community/work/leisure, To improve gait and locomotor functions and To increase flexibility/ROM Therapeutic Exercise to Include: Strength training, Postural training, Gait and locomotor training, Neuromotor development, In an aquatic setting , Active ROM and Dynamic Lumbar Stabilization For the Purpose of:: To decrease pain, To increase ROM, To improve nutrient delivery to tissue, To improve muscle performance and motor function, To improve ability to perform ADL's, To increase tolerance to activity/condition/position, To improve performance and independence with ADL's, To decrease level of supervision to perform tasks, To improve ability of physical actions for home/community/work/leisure and To improve gait and locomotor functions Functional Training to Include: Gait training For the Purpose of:: To improve gait and locomotor functions Text: Thank you for the opportunity to evaluate your patient. For Medicare and Medicare HMO plans, please review the plan of care and approve it. It will need to be FAXED BACK to us at [phone] for Medicare purposes. For Medicare only, by signing this I certify the plan of care. Please let me know if there are questions or concerns regarding this plan of care. Physician Signature: Date:
--- NOTE | 2022-11-16 10:55 | HP.PTREVAL_ITS ---
Re-Evaluation Intro: JERRICA PATIÑO, It has been my pleasure to treat IVY CLINE over the last 9 visits for Varus deformity and knee OA L. Please see the progress note below for an update on the physical therapy plan of care! Subjective Subjective: Back injection is tomm. He had to take additional Gabapetin. He reports that his knee still snaps but does not hurt. He favors the L going up steps and takes one step at a time. Pt notices that his R arm does not swing and reports that pt is not walking as fast as her normally does Objective Objective/Function: R hip flex 9.8 and L hip flex 9.9 (pain in back) R knee ext 20.3 and L 19.2 R knee flex 8.7 and L knee flex 7.8 R hip abd 8.5 and L 9 Plan Plan Plan: Pt to call in once he has back injection. Plan would be hopefully be able to start to transition to I gym exercises over next PT sessions if back injection works. Balance/Gait/Functional tests Balance/Special Test Scores Lower Extremity Functional Score: 41 Goals Goals Goal 1:: I HEP and H&W program Goal Time Frame: 6-8 Weeks Goal Progress: Goal Met Goal 2:: Increase L knee strength (at time of the eval: R hip flex 15.9 and L hip flex 11.9 R knee ext 19.2 and L 18.2 R knee flex 6.4 and L knee flex 6.1 R hip abd 8.5 and L 9) Goal Time Frame: 6-8 Weeks Goal 3:: Be able to go up and down the steps recip with 2 light UE support on hand rails with no signs of weakness. Goal Time Frame: 6-8 Weeks Goal Progress: Progressing Goal 4:: Decrease L knee pain Goal Time Frame: 6-8 Weeks Goal Progress: Progressing Anticipated Interventions Anticipated Interventions Patient/Client Instruction: Educate patient on: Condition and Plan of Care For the Purpose of:: To decrease pain, To increase ROM, To improve nutrient delivery to tissue, To improve muscle performance and motor function, To improve ability to perform ADL's, To increase tolerance to activity/condition/position, To improve performance and independence with ADL's, To decrease level of supervision to perform tasks, To improve ability of physical actions for home/c ommunity/work/leisure, To improve gait and locomotor functions and To increase flexibility/ROM Therapeutic Exercise to Include: Strength training, Postural training, Gait and locomotor training, Neuromotor development, In an aquatic setting , Active ROM and Dynamic Lumbar Stabilization For the Purpose of:: To decrease pain, To increase ROM, To improve nutrient delivery to tissue, To improve muscle performance and motor function, To improve ability to perform ADL's, To increase tolerance to activity/condition/position, To improve performance and independence with ADL's, To decrease level of supervision to perform tasks, To improve ability of physical actions for home/community/work/leisure and To improve gait and locomotor functions Functional Training to Include: Gait training For the Purpose of:: To improve gait and locomotor functions Re-Evaluation Ending Re-evaluation ending: Please do not hesitate to contact me at [phone] by phone or if you have questions or concerns regarding this new plan of care! Sincerely, Violette Jeter, MPT
--- NOTE | 2023-02-22 07:39 | HP.PT.NRP(2) ---
Patient Information Patient Information: IVY CLINE was seen in my office for initial evaluation on . The following Plan of Care was established for this patient: Last Seen Last Seen: This patient was last seen in our office . Pertinent comments regarding their Physical therapy will appear below: At this point I will be discontinuing this patient from physical therapy. I would be happy to see this patient again in the future if found appropriate by the physician. Thank you! Violette Jeter, MPT
== END 2022-11-16 19:00 | disposition home or self-care (01) ==
LOC: PT 10:30
PROVIDERS: PCP Internal Medicine
DX: M21.162 Varus deformity, not elsewhere classified, left knee (principal); M17.12 Unilateral primary osteoarthritis, left knee
CPT/HCPCS: 97110; 97161; 97530

== ENCOUNTER 2022-12-14 08:58 | Outpatient (RCR) | payer MEDICARE, OTHER, SELFPAY | END 2022-12-21 23:59 | LOC: NS 08:58 | PROVIDERS: PCP Internal Medicine; Referring Provider Internal Medicine; Visit Provider Internal Medicine | DX: Z71.3 Dietary counseling and surveillance (principal); E66.9 Obesity, unspecified; Z68.35 Body mass index [BMI] 35.0-35.9, adult; E11.9 Type 2 diabetes mellitus without complications | CPT/HCPCS: 97802 ==

== ENCOUNTER 2023-01-11 09:56 | Outpatient (RCR) | payer MEDICARE, OTHER, SELFPAY | END 2023-01-20 23:59 | LOC: NS 09:56 | PROVIDERS: PCP Internal Medicine; Referring Provider Internal Medicine; Visit Provider Internal Medicine | DX: Z71.3 Dietary counseling and surveillance (principal); E66.9 Obesity, unspecified; Z68.35 Body mass index [BMI] 35.0-35.9, adult; E11.9 Type 2 diabetes mellitus without complications | CPT/HCPCS: 97803 ==

== ENCOUNTER 2023-03-21 09:54 | Outpatient (RCR) | payer MEDICARE, OTHER, SELFPAY | END 2023-03-23 23:59 | LOC: DC 09:54 | PROVIDERS: PCP Internal Medicine; Referring Provider Internal Medicine; Visit Provider Internal Medicine | DX: E66.9 Obesity, unspecified (principal); Z68.35 Body mass index [BMI] 35.0-35.9, adult | CPT/HCPCS: 97803 ==

== ENCOUNTER 2023-06-13 09:55 | Outpatient (RCR) | payer MEDICARE, OTHER, SELFPAY | END 2023-06-21 23:59 | LOC: DC 09:55 | PROVIDERS: PCP Internal Medicine; Visit Provider Internal Medicine | DX: E11.9 Type 2 diabetes mellitus without complications (principal) | CPT/HCPCS: 97803 ==

== ENCOUNTER 2023-12-28 11:56 | Emergency (ER) | payer MEDICARE, OTHER, SELFPAY ==
[2023-12-28 11:56] VITALS: BP 152/93; PULSE 78; RESP 16; TEMP 36.8; O2SAT 99; BMI 37.6
[2023-12-28 13:56] VITALS: BP 125/79; PULSE 73; RESP 16; O2SAT 96
[2023-12-28 15:00] VITALS: BP 137/86; PULSE 63; RESP 16; O2SAT 94
[2023-12-28 15:11] VITALS: BP 137/86; PULSE 63; RESP 16; TEMP 36.3; O2SAT 94
== END 2023-12-28 15:24 | disposition home or self-care (01) ==
PROVIDERS: Emergency Provider Emergency Medicine; PCP Internal Medicine; Visit Provider Emergency Medicine
DX: S39.92XA Unspecified injury of lower back, initial encounter (principal); E11.9 Type 2 diabetes mellitus without complications; S00.03XA Contusion of scalp, initial encounter; I25.10 Atherosclerotic heart disease of native coronary artery without angina pectoris; W11.XXXA Fall on and from ladder, initial encounter
CPT/HCPCS: 72100; 99282

== ENCOUNTER → 2024-01-11 | Outpatient (CLI) | payer MEDICARE, OTHER, SELFPAY ==
--- NOTE | 2024-01-11 14:59 | MRI_ITS ---
ACR Level 3 findings have been noted. An addendum which confirms receipt of the report will follow. STUDY: MRI LUMBAR SPINE WITHOUT CONTRAST REASON FOR EXAM: Male, 68 years old. STENOSIS TECHNIQUE: Standardized fat and water weighted pulse sequences were obtained in the sagittal and axial planes. COMPARISON: MRI of the lumbar spine dated September 12, 2017. CT lumbar spine dated April 19, 2022. X-ray the lumbar spine dated December 28, 2023 FINDINGS: An acute compression fracture of the L1 vertebral body is present with diffuse marrow edema, 20-30% loss of height, and mild cortical offset anteriorly. No retropulsion is demonstrated. Normal lumbar lordosis. There is a levoscoliosis of the lumbar spine. Normal conus medullaris that terminates at the L1 level. T12-L1: Normal endplates. Normal disc height, hydration and morphology. Normal bilateral facet joints. Normal central canal and bilateral lateral recesses. Normal bilateral intervertebral neural foramina. L1-2: Moderate disc space narrowing with diffuse disc desiccation and mild diffuse disc bulge with anterior endplate spurring and degenerative signal.. Normal bilateral facet joints. Normal central canal and bilateral lateral recesses. Normal bilateral intervertebral neural foramina. L2-3: Moderate disc space narrowing with diffuse disc desiccation and mild annular bulging and anterior endplate spurring. Mild facet joint hypertrophy. Normal central canal and bilateral lateral recesses. Normal bilateral intervertebral neural foramina. Slight retrolisthesis of L2 on L3 of 2 to 3 mm. L3-4: Diffuse disc desiccation with mild posterior disc space narrowing and annular bulging and endplate spurring. Normal bilateral facet joints. Normal central canal and bilateral lateral recesses. Normal bilateral intervertebral neural foramina. L4-5: Moderate to severe disc space narrowing with a diffuse disc bulge and moderate Modic endplate degenerative signal and changes. Mild facet joint hypertrophy. Normal left neural foramen. Moderate right foraminal stenosis with nerve root impingement. Normal central canal and bilateral lateral recesses. L5-S1: Diffuse disc desiccation with mild disc space narrowing centrally and moderate posterior disc space narrowing with slight annular bulging. Moderate facet joint hypertrophy. Moderate right foraminal stenosis with nerve root compression. Normal left neural foramen. Normal central canal and bilateral lateral recesses. Normal visualized sacral ala. Normal visualized paraspinous soft tissue structures. MRI/Spine Lumbar (Routine) IMPRESSION: 1. An acute compression fracture of the L1 vertebral body is present with diffuse marrow edema, 20-30% % loss of height, and mild cortical offset anteriorly. No retropulsion is demonstrated. 2. Multilevel degenerative changes, as described above. Electronically Signed: Jamir Noguera MD at 14:05 EST ,
== END | disposition home or self-care (01) ==
LOC: MRI 14:53
PROVIDERS: PCP Internal Medicine; Referring Provider Anesthesiology Pain Medicine; Visit Provider Anesthesiology Pain Medicine
DX: M48.07 Spinal stenosis, lumbosacral region (principal)
CPT/HCPCS: 72148

== ENCOUNTER → 2024-01-17 | Outpatient (CLI) | payer MEDICARE, OTHER, SELFPAY ==
--- NOTE | 2024-01-17 | BON_PTH ---
PATIENT: [facility]Y [facility]INE [facility] U[facility][id number] AGE/SX: 68/M ROOM: RE01/17/[address]: Dr. Joseluis Rodriguez MD : [id number] BED: DIS: 01/17/2024 SPEC #: [id number] RECD: 01/17/24 15:12 STATUS: JONELLE REHua #: [id number] WENDY: 01/17/24 00:[address]: Joseluis Rodriguez DEPT: SURGICAL PATHOLOGY RECD BY: Prasad Carrillo ENTERED: 01/18/24 12:19 SP TYPE: Bone OTHR DR: Dr. Adriana Dowling, DO Tissues: Vertebra, NOS Procedures: Decalcification bone/plaque Surgery Specimen Level IV HEADER OPERATION: Kyphoplasty at L1 under fluoroscopy with biopsy PRE-OP DIAGNOSIS: Age-related osteoporosis with current pathological fracture, vertebrae, initial encounter for fracture TISSUE SUBMITTED: Body of L1 vertebrae MICROSCOPIC DIAGNOSIS Body of L1 vertebrae, bone core biopsy: Reparative and reactive change consistent with fracture site. No evidence of malignancy. . 01/20/2024 MICROSCOPIC DESCRIPTION Slides are reviewed. GROSS DESCRIPTION Received in fixative is one container labeled with the patient's name and designated Body of L1 vertebrae. The specimen consists of a cylindrical fragment of carrasco bone measuring 1.6 x 0.2 x 0.2cm. The specimen is submitted in its entirety in one cassette after decalcification. . 01/18/2024 TC:5 CPT:87937,16330
== END | disposition home or self-care (01) ==
LOC: LABSPEC 15:47
PROVIDERS: PCP Internal Medicine; Referring Provider Anesthesiology Pain Medicine; Visit Provider Anesthesiology Pain Medicine
DX: M80.08XA Age-related osteoporosis with current pathological fracture, vertebra(e), initial encounter for fracture (principal)
CPT/HCPCS: 88305; 88311

== ENCOUNTER → 2025-01-02 | Outpatient (CLI) | payer MEDICARE, OTHER, SELFPAY ==
[2025-01-02 14:04] LABS: Mucous, Urine 0 SEEN /hpf (<or=2+); Red Blood Cells-Urine 0 SEEN /hpf (0-5); Squamous Epithelial Cells - UA 0 SEEN /hpf (0-5)
[2025-01-02 15:09] LABS: Hematocrit 48.6 % (40-54); Hemoglobin 16.6 g/dL (13.0-16.5); Mean Corp Hgb Conc 34.2 g/dL (32-36); Mean Corpuscular Volume 87.3 fL (80-94); Mean Platelet Vol. 9.8 fl (6.2-12.0); Platelet Count 180 K/mm3 (150-450); RBC Distribution Width CV 13.6 % (11.6-14.6); RBC Distribution Width SD 43.2 fl (35.1-43.9); Red Blood Count 5.57 M/mm3 (4.6-6.2); White Blood Count 9.1 K/mm3 (4.4-11.0)
[2025-01-02 16:56] LABS: PSA,Total - Annual Screen 1.80 ng/mL (0.02-4.00)
[2025-01-02 20:48] LABS: Color, Urine Yellow (Yellow); Glucose, Dipstick 1000 mg/dl (Normal); Ketone-Dipstick Negative (Negative); Leukocyte Esterase-Dipstick Negative /ul (Negative); Nitrite-Dipstick Negative (Negative); Occult Blood-Urine 10 /ul (Negative); Protein-Dipstick 15 mg/dl (Negative); Specific Gravity, Urine 1.015 (1.002-1.030); Urine Bilirubin Dipstick Negative (Negative)
== END | disposition home or self-care (01) ==
PROVIDERS: PCP Internal Medicine; Referring Provider Internal Medicine; Visit Provider Internal Medicine
DX: R30.9 Painful micturition, unspecified (principal); I10 Essential (primary) hypertension; Z12.5 Encounter for screening for malignant neoplasm of prostate
CPT/HCPCS: 36415; 81001; 84153; 85027; 87086; 87088; G0103

== ENCOUNTER → 2025-01-25 | Outpatient (CLI) | payer MEDICARE, OTHER, SELFPAY ==
--- NOTE | 2025-01-25 17:47 | CT_ITS ---
PROCEDURE: ABDOMEN/PELVIS WITH CONTRAST 01/25/2025 REASON FOR EXAM: GROSS HEMATURIA TECHNIQUE: Procedure Code: [id number] Modality: CT Procedure: ABDOMEN/PELVIS WITH CONTRAST Coronal and Sagittal reconstruction series were provided. CONTRAST: 100 cc of Isovue 370 One or more dose reduction techniques were used (e.g., Automated exposure control, adjustment of the mA and/or kV according to patient size, use of iterative reconstruction technique. COMPARISON: None available. FINDINGS: Lung bases: Left basilar atelectasis. Liver: Mildly enlarged measuring 20.1 cm craniocaudally. Diffuse hepatic steatosis. No obvious hepatic mass. Gallbladder: Surgically absent. No biliary ductal dilatation. Spleen: Normal size. Pancreas: Normal size without evidence of mass surrounding inflammation or ductal dilation. Adrenals: No adrenal masses. Kidneys: Multiple right renal cysts, the largest in the lower pole measures 6.0 x 5.3 x 5.5 cm. No renal calculi or hydronephrosis bilaterally. Bladder: Diffuse bladder wall thickening measuring up to 7 mm. Findings suggest cystitis. Reproductive Organs: Prostate not enlarged. No pelvic masses. Bowel: No bowel obstruction. No inflammatory changes. Appendix: Normal. Lymph nodes: Unremarkable. Vasculature: Atherosclerotic vascular calcifications. No aneurysm. Peritoneum / Retroperitoneum: No free fluid or air. Bones: Chronic compression deformity of L1 with vertebroplasty material. Diffuse degenerate changes of the spine. CT/Abdomen/Pelvis WITH Contrast IMPRESSION: 1. No acute findings in the abdomen or pelvis. 2. Diffuse bladder wall thickening suggestive of cystitis. 3. Multiple right renal cysts measuring up to 6.0 cm. 4. Hepatomegaly and diffuse hepatic steatosis. Reading [facility]
[2025-01-25 18:08] LABS: CREATININE FINGERSTICK 1.3 mg/dL (0.70-1.30); EGFR FINGERSTICK 58.0000 mL/min (>60)
== END | disposition home or self-care (01) ==
LOC: CT 17:45
PROVIDERS: PCP Internal Medicine; Referring Provider Urology; Visit Provider Urology
DX: R31.0 Gross hematuria (principal)
CPT/HCPCS: 74177; Q9967

== ENCOUNTER 2025-02-06 15:07 | Emergency (ER) | payer MEDICARE, OTHER, SELFPAY ==
[2025-02-06] VITALS (28 sets, daily range): BP systolic 133–168; BP diastolic 70–96; PULSE 90–108; RESP 14–31; TEMP 36.4; O2SAT 92–97; BMI 37.1
--- NOTE | 2025-02-06 17:45 | EKG12_ITS ---
Test Reason : Blood Pressure : */* mmHG Vent. Rate : 88 BPM Atrial Rate : 88 BPM P-R Int : 138 ms QRS Dur : 106 ms QT Int : 346 ms P-R-T Axes : 34 31 67 degrees QTcB Int : 418 ms Normal sinus rhythm Nonspecific T wave abnormality Abnormal ECG Confirmed by Brian Mckenna ([id number]), editor news TERRY HUNT ([id number]) on 02/08/2025 10:28:57 AM Referred By: Confirmed By: Brian Mckenna
[2025-02-06 18:03] LABS: Hematocrit 46.2 % (40-54); Hemoglobin 15.5 g/dL (13.0-16.5); Immature Granulocytes Count 0.350 X10^3/uL (0.0-0.0); Mean Corp Hgb Conc 33.5 g/dL (32-36); Mean Corpuscular Volume 89.0 fL (80-94); Mean Platelet Vol. 9.7 fl (6.2-12.0); NRBC Flagged by Analyzer 0 % (0-5); Platelet Count 158 K/mm3 (150-450); RBC Distribution Width CV 14.3 % (11.6-14.6); RBC Distribution Width SD 46.7 fl (35.1-43.9); Red Blood Count 5.19 M/mm3 (4.6-6.2); White Blood Count 14.9 K/mm3 (4.4-11.0)
[2025-02-06 18:25] LABS: Mucous, Urine 0 SEEN /hpf (<or=2+); Squamous Epithelial Cells - UA 0 SEEN /hpf (0-5)
[2025-02-06 18:26] LABS: Color, Urine Yellow (Yellow); Glucose, Dipstick 1000 mg/dl (Normal); Ketone-Dipstick Negative (Negative); Leukocyte Esterase-Dipstick 25 /ul (Negative); Nitrite-Dipstick Negative (Negative); Occult Blood-Urine 25 /ul (Negative); Protein-Dipstick 30 mg/dl (Negative); Specific Gravity, Urine 1.015 (1.002-1.030); Urine Bilirubin Dipstick Negative (Negative)
[2025-02-06 18:32] LABS: Red Blood Cells-Urine 0-5 SEEN /hpf (0-5)
[2025-02-06 18:35] LABS: AST(SGOT) 34 U/L (<=37); Alanine Aminotransfer ALT/SGPT 78 U/L (<=46); Albumin, Serum 3.6 g/dL (3.4-4.8); Alkaline Phosphatase 75 U/L (40-129); Anion Gap 13 (5-15); BUN 19 mg/dL (4-19); BUN/Creat Ratio 17.1 RATIO (10-20); Calcium,Total 9.9 mg/dL (7.6-11.0); Carbon Dioxide 24.9 mmol/L (21.0-32.0); Chloride 101 mmol/L (98-108); Estimated Creatinine Clearance 85.20 ml/min (50-250); Globulin 3.1 g/dL (2.2-4.2); Glucose 163 mg/dL (70-99); Potassium 3.7 mmol/L (3.3-5.1); Pro- Brain NATRIURETIC PEPTIDE 457 pg/mL (<=900)
[2025-02-06 18:58] LABS: Troponin T High Sensitivity 18 ng/L (<=22)
[2025-02-06 20:17] LABS: Troponin T High Sens 2 HR 18 ng/L (<=22)
--- NOTE | 2025-02-06 20:22 | EDS_ITS ---
HPI History of Present Illness Chief Complaint: General Illness Narrative Narrative: Patient was seen and examined after presenting to ED for generalized illness states that he recently tested positive for COVID-19 he feels like he is panting when he gets up and goes and walks around especially of the stairs he is on Paxlovid but also reports that he had to stop his Flomax during that but because of that he has been having more trouble urinating so he decided to restart his Flomax today. [facility] Medical History Other specified abnormal findings of blood chemistry BPH (benign prostatic hyperplasia) Unilateral primary osteoarthritis, right knee Arthritis of knee, left Intervertebral disc disorders with radiculopathy, lumbar region Spinal stenosis, lumbar region with neurogenic claudication GERALDINE (obstructive sleep apnea) Vitamin D deficiency, unspecified Type 2 diabetes mellitus without complications Family history of prostate cancer Family history of bladder cancer Type 2 diabetes mellitus Hypercholesteremia ADD (attention deficit disorder) CAD (coronary artery disease) Diaphragm paralysis GERD (gastroesophageal reflux disease) Hiatal hernia Fatty liver Psoriasis Lumbar disc herniation with radiculopathy BPH w urinary obs/LUTS Sarcoidosis HTN (hypertension) Home Medications ?Medication ?Instructions ?Recorded ?Last Taken ?Type benazepril 20 1 ea PO DAILY 11/12/19 Unkno wn History mg-hydrochlorothiazide 12.5 mg tablet cholecalciferol (vitamin D3) 50 50 mcg PO DAILY Unknown History mcg (2,000 unit) capsule tadalafil 20 mg tablet (Cialis) 20 mg PO DAILY PRN 11/13 Unknown History amlodipine 10 mg tablet 10 mg PO QDAY 01/14/25 Unkno wn History glimepiride 1 mg tablet 1 mg PO QDAY 01/14/25 Unknow n History mirtazapine 7.5 mg tablet mg PO 01/14/25 Unknown Histo ry rosuvastatin 10 mg tablet 10 mg PO QHS 01/14/25 Unknow n History Held on 02/03/25. Instructions: Order Changed semaglutide 1 mg/dose (4 mg/3 mL) 1 mg (0.75 mL) subcu t QWEEK #9 mL 01/14/25 Unknown Rx subcutaneous pen injector (Ozempic) nirmatrelvir 300 mg (150 mg See Rx Instructions PO .CO MPLEX 02/03/25 Unknown Rx x2)-ritonavir 100 mg tablet,dose #30 tabs pack (Paxlovid) empagliflozin 25 mg tablet 25 mg PO DAILY #90 tabs Unknown Rx labetalol 200 mg tablet 200 mg PO BID #180 tabs 01/21 07/15 Unknown Rx tamsulosin 0.4 mg capsule 0.4 mg PO DAILY #90 caps Unknown Rx cefdinir 300 mg capsule 300 mg PO BID #14 caps 02/07 Unknown Rx Allergy/AdvReac Type Severity Reaction Status Date / Time animal dander Allergy Itching Verified 02/06/25 15:10 house dust Allergy Itching Verified 02/06/25 15:10 mold Allergy Itching Verified 02/06/25 15:10 pollen extracts Allergy Other Verified 02/06/25 15:10 Proton Pump Inhibitors AdvReac MUSCLE Verified 02/06/25 15:10 PAIN,WEAKNESS Family History Other Bladder cancer Cancer Prostate cancer Surgical History Hx of right knee surgery Hx of cardiac catheterization History of cholecystectomy History of colonoscopy Social History adopted: No household members: spouse housing: house number of children: 2 current occupational status: employed and retired current occupation: Retired current occupational exposures/hazards: No pets and animals: No Smoking Status: Never smoker second hand exposure: Yes (Father smoked while he was a child) alcohol intake: current alcohol intake frequency: other details: 1-2 a week substance use type: does not use caffeine: Yes (4-6) Type: coffee what type of physical activity do you participate in: none jude/adventism: Non-Mormonism/Independent seatbelt use: always do you feel safe at home: Yes ROS ROS ED ROS Narrative Pertinent Positives: Shortness of breath especially with ambulation recent COVID-19 infection had a chest x-ray today done at urgent care and was told he had fluid on the lungs Pertinent Negatives: Chest pain pressure diarrhea history of DVT or PE use of anticoagulation The remainder of review of systems negative unless otherwise stated in the HPI above. Systems reviewed including constitutional, psychiatric, cardiovascular, respiratory, integument, HENT, gastrointestinal. EXAM Physical Exam Narrative Exam Narrative: Afebrile hemodynamically stable does not appear toxic or in distress normocephalic and atraumatic his lungs did have a couple coarse crackles but otherwise no significant wheezing no stridor normal heart sounds otherwise no lower extremity edema or calf tenderness intact and equal MSPs abdomen is soft nontender nondistended no palpable pulsatile mass Const Vital Signs: 02/06/25 15:08 02/06/25 17:41 02/06/25 17:45 Temperature 97.6 F L Temperature Source Oral Pulse Rate 97 100 90 Respiratory Rate 24 H 20 H 20 H Respiratory Effort Respiratory Pattern Blood Pressure 148/87 H 133/82 H Blood Pressure Mean 107 95 Pulse Ox 96 97 96 Oxygen Delivery Method Room Air 02/06/25 17:59 02/06/25 18:00 02/06/25 18:19 Temperature Temperature Source Pulse Rate 91 95 Respiratory Rate 18 Respiratory Effort Short of Breath Respiratory Pattern Tachypnea Blood Pressure 141/85 H 149/82 H Blood Pressure Mean 100 101 Pulse Ox 93 96 Oxygen Delivery Method 02/06/25 18:30 02/06/25 18:45 02/06/25 19:00 Temperature Temperature Source Pulse Rate 90 92 108 H Respiratory Rate 21 H 18 26 H Respiratory Effort Respiratory Pattern Blood Pressure 142/75 H 140/80 H Blood Pressure Mean 92 98 Pulse Ox 95 94 Oxygen Delivery Method 02/06/25 19:17 02/06/25 19:30 02/06/25 19:45 Temperature Temperature Source Pulse Rate 102 H 104 H 92 Respiratory Rate 19 H 19 H 22 H Respiratory Effort Respiratory Pattern Blood Pressure 155/70 H 142/78 H Blood Pressure Mean 92 96 Pulse Ox 96 96 94 Oxygen Delivery Method 02/06/25 20:00 02/06/25 20:15 02/06/25 20:30 Temperature Temperature Source Pulse Rate 91 102 H 90 Respiratory Rate 21 H 21 H 23 H Respiratory Effort Respiratory Pattern Blood Pressure 142/86 H 150/87 H Blood Pressure Mean 101 100 Pulse Ox 95 93 94 Oxygen Delivery Method 02/06/25 20:45 02/06/25 21:01 02/06/25 21:02 Temperature Temperature Source Pulse Rate 106 H 105 H Respiratory Rate 19 H Respiratory Effort Respiratory Pattern Blood Pressure 168/78 H Blood Pressure Mean 101 Pulse Ox 93 93 Oxygen Delivery Method 02/06/25 21:15 02/06/25 21:30 02/06/25 21:45 Temperature Temperature Source Pulse Rate 95 96 93 Respiratory Rate 14 19 H Respiratory Effort Respiratory Pattern Blood Pressure 142/88 H Blood Pressure Mean 103 Pulse Ox 94 94 94 Oxygen Delivery Method 02/06/25 22:00 02/06/25 22:18 Temperature Temperature Source Pulse Rate 101 H 108 H Respiratory Rate 25 H Respiratory Effort Respiratory Pattern Blood Pressure 147/88 H Blood Pressure Mean 105 Pulse Ox 94 96 Oxygen Delivery Method MDM MDM MDM Narrative Medical decision making narrative: Nursing notes, triage notes, available previous documentation, and vital signs were reviewed. Any discrepancies noted were addressed. Differential Diagnoses: Need to consider pneumonia picture need to consider pleural effusion or pulmonary edema type picture lower suspicion for PE at this time Interventions: Antibiotics Given: Ceftriaxone Fluids Given: 1 L normal saline Labs Reviewed: Patient does have a leukocytosis 14.9 hemoglobin is 15.5 no electrolyte abnormality or renal insufficiency ALT slightly elevated at 78 troponin was 18 with a delta troponin also being 18 proBNP was 457 urine was without evidence of infection Imaging Reviewed: Personally reviewed and interpreted by me: Chest x-ray definitely does have some interstitial pulmonary edema but I am concerned for right lower lobe pneumonia as well EKG: Normal sinus rhythm rate of [address] segment elevation SD interval is 138 with a QTc of 418. EKG interpretation is noted and agreed to in the EMR. The interpretation of this patient's EKG contributed directly to the care and management of this patient. Previous Documentation Reviewed: None available or applicable at this time. ED Course: Patient presenting with worsening shortness of breath feels like he is panting just walking short distance Seems to have interstitial edema on chest x-ray and that I concern for right lower lobe pneumonia. Patient was up and ambulatory did not desaturate below 93%. Patient's urine was without evidence of infection I did review the chest x-ray from earlier today show that pneumonia did discuss with the patient he would like to go home ultimately so he was fine with getting a IV dose of ceftriaxone with cefdinir for home return precautions follow-up recommendations provided he is being provided with antibiotics because I am concerned for an overlying developing pneumonia beyond just his COVID that he was diagnosed with several days ago. Return precautions follow-up recommendations provided patient stable for discharge home This note was made utilizing voice recognition software. All attempts were made to correct spelling or other errors prior to note completion. However, due to the fast-paced nature of emergency medicine, some errors may still be present. Lab Data Labs: Laboratory Results - last 24 hr 02/06/25 02/06/25 02/06/25 17:38 17:53 18:20 WBC 14.9 H RBC 5.19 Hgb 15.5 Hct 46.2 MCV 89.0 MCH 29.9 MCHC 33.5 RDW Std Deviation 46.7 H RDW Coeff of [place] 14.3 Plt Count 158 MPV 9.7 Immature Gran % (Auto) 2.300 H Neut % (Auto) 74.9 H Lymph % (Auto) 11.9 L [place] % (Auto) 9.5 Eos % (Auto) 0.7 Baso % (Auto) 0.7 Absolute Neuts (auto) 11.2 H Absolute Lymphs (auto) 1.77 Nucleated RBC % 0 Sodium 138 Potassium 3.7 Chloride 101 Carbon Dioxide 24.9 Anion Gap 13 BUN 19 Creatinine 1.13 Estim Creat Clear Calc 85.20 Est GFR (MDRD) Non-Af 71 BUN/Creatinine Ratio 17.1 Glucose 163 H Calcium 9.9 Total Bilirubin 0.39 AST 34 ALT 78 H Alkaline Phosphatase 75 Troponin T High Sens 18 Troponin T Hi Sens 2 Hr NT pro BNP II 457 Total Protein 6.6 Albumin 3.6 Globulin 3.1 Albumin/Globulin Ratio 1.2 Urine Color Yellow Urine Clarity Clear Urine pH 6.0 Ur Specific [place] 1.015 Urine Protein 30 H Urine Glucose (UA) 1000 H Urine Ketones Negative Urine Occult Blood 25 H Urine Nitrite Negative Urine Bilirubin Negative Urine Urobilinogen Normal Ur Leukocyte Esterase 25 H Urine RBC 0-5 SEEN Urine WBC 0-5 SEEN Ur Squamous Epith Cells 0 SEEN Urine Bacteria 0 SEEN Urine Mucus 0 SEEN POC Glucose 155 H 02/06/25 19:50 WBC RBC Hgb Hct MCV MCH MCHC RDW Std Deviation RDW Coeff of [place] Plt Count MPV Immature Gran % (Auto) Neut % (Auto) Lymph % (Auto) [place] % (Auto) Eos % (Auto) Baso % (Auto) Absolute Neuts (auto) Absolute Lymphs (auto) Nucleated RBC % Sodium Potassium Chloride Carbon Dioxide Anion Gap BUN Creatinine Estim Creat Clear Calc Est GFR (MDRD) Non-Af BUN/Creatinine Ratio Glucose Calcium Total Bilirubin AST ALT Alkaline Phosphatase Troponin T High Sens Troponin T Hi Sens 2 Hr 18 NT pro BNP II Total Protein Albumin Globulin Albumin/Globulin Ratio Urine Color Urine Clarity Urine pH Ur Specific [place] Urine Protein Urine Glucose (UA) Urine Ketones Urine Occult Blood Urine Nitrite Urine Bilirubin Urine Urobilinogen Ur Leukocyte Esterase Urine RBC Urine WBC Ur Squamous Epith Cells Urine Bacteria Urine Mucus POC Glucose Discharge Plan Triage Chief Complaint: General Illness ED Provider: Celso Hollingsworth Dx/Rx/DC Orders Clinical Impression: Right lower lobe pneumonia, COVID-19 virus infection, Dyspnea Instructions: ED Pneumonia (Adult) Prescriptions: New cefdinir 300 mg capsule 300 mg PO BID Qty: 14 0RF No Action tadalafil [Cialis] 20 mg tablet 20 mg PO DAILY PRN Rx Instructions: administer approximately 30min before sexual activity; do not use more than 1 dose per 24hrs cholecalciferol (vitamin D3) 50 mcg (2,000 unit) capsule 50 mcg PO DAILY glimepiride 1 mg tablet 1 mg PO QDAY rosuvastatin 10 mg tablet 10 mg PO QHS mirtazapine 7.5 mg tablet PO amlodipine 10 mg tablet 10 mg PO QDAY Ozempic 1 mg/dose (4 mg/3 mL) pen injector 1 mg subcut QWEEK Qty: 9 3RF Paxlovid 300 mg (150 mg x 2)-100 mg tablets,dose pack See Rx Instructions PO .COMPLEX Qty: 30 0RF Rx Instructions: take TWO 150 mg tablets of nirmatrelvir with ONE 100 mg tablet of ritonavir twice daily for 5 days PO benazepril-hydrochlorothiazide 1 EACH tablet 1 ea PO DAILY labetalol 200 mg tablet 200 mg PO BID Qty: 180 0RF empagliflozin 25 mg tablet 25 mg PO DAILY Qty: 90 0RF tamsulosin 0.4 mg capsule 0.4 mg PO DAILY Qty: 90 3RF Primary Care Provider: Adriana Dowling Referrals: Adriana Dowling DO [Primary Care Provider, Internal Medicine] Activity Restrictions/Additional Instructions: Take the antibiotics to completion if you are feeling worse please do not hesitate to return otherwise follow-up with your doctor Print Language: Croatian Disposition Disposition: Home, Self Care
--- NOTE | 2025-02-06 20:45 | ED.RN ---
Pt ambulated down hallway by medic. Pt started at 95% and dropped to 93% O2 saturation. Dr. Alcantar notified.
[2025-02-06] MEDS: 0.9% Normal Saline (1000mL) 1,000 ML 999 ML IV (22:54)
[2025-02-06] MEDS: Ceftriaxone 2 GM in 0.9% Normal Saline (50mL MB+) 50 ML IV (22:54)
[2025-02-07] VITALS: BP 147/81; PULSE 97; RESP 22; O2SAT 95
[2025-02-07 00:15] VITALS: PULSE 95; RESP 22; O2SAT 94
[2025-02-07 00:22] VITALS: BP 147/81; PULSE 95; RESP 22; TEMP 36.4; O2SAT 94
== END 2025-02-07 00:32 | disposition home or self-care (01) ==
PROVIDERS: Emergency Provider Specialist/Technologist Athletic Trainer; PCP Internal Medicine; Visit Provider Specialist/Technologist Athletic Trainer
DX: J18.9 Pneumonia, unspecified organism (principal); E11.9 Type 2 diabetes mellitus without complications; U07.1 COVID-19; I25.10 Atherosclerotic heart disease of native coronary artery without angina pectoris; G47.33 Obstructive sleep apnea (adult) (pediatric)
CPT/HCPCS: 80053; 81001; 82962; 83880; 84484; 85025; 93005; 96365; 96366; 99284; A4216; J0696

== ENCOUNTER → 2025-02-06 | Outpatient (CLI) | payer MEDICARE, OTHER, SELFPAY ==
--- NOTE | 2025-02-06 14:02 | RAD_ITS ---
PROCEDURE: CHEST PA AND LATERAL 02/06/2025 REASON FOR EXAM: SOB TECHNIQUE: Procedure Code: RADCXR Modality: DX Procedure: CHEST PA AND LATERAL COMPARISON: 12/22/2020 FINDINGS: Mild pulmonary vascular congestion and interstitial edema. Right lower lobe opacity not excluded. No pleural effusion or pneumothorax. Cardiac silhouette is within normal limits. No acute fractures. RAD/Chest PA and Lateral IMPRESSION: Mild pulmonary vascular congestion and interstitial edema. Right lower lobe opa city not excluded. Reading Location: [id number]
== END | disposition home or self-care (01) ==
LOC: MTRAD 14:02
PROVIDERS: PCP Internal Medicine; Referring Provider Physician Assistant; Visit Provider Physician Assistant
DX: R06.02 Shortness of breath (principal)
CPT/HCPCS: 71046